=== PATIENT | female | born 1960 | race Caucasian/White ===

== ENCOUNTER → 2018-09-09 17:10 | Outpatient (CLI) | payer OTHER, SELFPAY ==
[2018-09-09 16:21] VITALS: BMI 44.4
--- NOTE | 2018-09-09 17:15 | RAD_ITS ---
STUDY: X-RAY - RIGHT HAND, ATTENTION FIRST FINGER REASON FOR EXAM: Female, 57 years old. Ganglion TECHNIQUE: 3 view(s) of the finger were obtained. COMPARISON: None. FINDINGS: Normal metacarpal head. Normal metacarpophalangeal joint. Normal proximal phalanx. Normal distal phalanx. Interphalangeal osteoarthritis. Distal dorsal soft tissue prominence. RAD/Finger(s) Min 2 Views IMPRESSION: Distal dorsal soft tissue prominence. Interphalangeal osteoarthritis. Electronically Signed: Humberto Sen MD at 17:37 EDT Tel , Service support ,
== END ==
PROVIDERS: Family Provider Family Medicine; PCP Family Medicine; Referring Provider Nurse Practitioner Family; Visit Provider Nurse Practitioner Family
DX: M67.441 Ganglion, right hand (principal)
CPT/HCPCS: 73140